=== PATIENT | female | born 1995 | race Caucasian/White ===

== ENCOUNTER 2022-05-15 09:49 | Inpatient (IN) ==
[2022-05-15] MEDS ORDERED: OXYTOCIN/RINGERS LACTATE 10 UNIT/166.6 ML BAG IVC ONE (10:12)
[2022-05-15] MEDS ORDERED: Famotidine 20 MG/2 ML VIAL IVP ONE (10:12)
[2022-05-15] MEDS ORDERED: CeFAZolin Syr 3,000MG/30 ML 3,000 MG/30 ML SYRINGE IVPB ONE (10:12)
[2022-05-15] MEDS ORDERED: Metoclopramide 10 MG/2 ML VIAL IVP ONE (10:12)
[2022-05-15] MEDS ORDERED: Ringers Solution, Lactated 1,000 ML IVC SCH (10:15)
[2022-05-15] MEDS ORDERED: Oxytocin 30 UNIT/503 ML BAG IVC SCH ×2 (10:15→12:45)
[2022-05-15] MEDS ORDERED: Lidocaine -MPF 1% 5 ML AMPUL ONE (11:10)
[2022-05-15] MEDS ORDERED: *HR* Phenylephrine 10 MG/ML VIAL ONE (12:01)
[2022-05-15] MEDS ORDERED: Ropivacaine/PF 0.2% 20 ML VIAL ONE (12:01)
[2022-05-15] MEDS ORDERED: Ropivacaine/PF 0.5% 30 ML VIAL ONE (12:01)
[2022-05-15] MEDS ORDERED: Ondansetron 4 MG/2 ML VIAL ONE (12:01)
[2022-05-15] MEDS ORDERED: EPHEDrine sulfate 50 MG/10 ML VIAL IVP PRN (12:10)
[2022-05-15] MEDS ORDERED: Epidural Premix (fent/bupiv) 110 ML EP SCH (12:15)
[2022-05-15] MEDS ORDERED: Metoclopramide 10 MG/2 ML VIAL IVP PRN (12:32)
[2022-05-15] MEDS ORDERED: Ondansetron 4 MG/2 ML VIAL IVP PRN (12:32)
[2022-05-15] MEDS ORDERED: Naloxone 0.4 MG/ML INJ IVP PRN (12:32)
[2022-05-15] MEDS ORDERED: Famotidine 20 MG/2 ML VIAL IVP PRN (12:32)
[2022-05-15 12:37] LABS: Basophils % 0.3 %; Eosinophils % 0.3 %; Hematocrit 32.9 % (35.3-44.9); Hemoglobin 10.5 g/dL (11.5-15.4); Immature Granulocytes % 0.3 % (0-4); Lymphocytes # 1.7 K/mcL (0.6-4.6); Lymphocytes % 17.3 %; Mean Corpuscular HGB Conc 31.9 g/dL (31.6-35.5); Mean Corpuscular Hemoglobin 24.5 pg (28.0-33.3); Mean Corpuscular Volume 76.9 fL (83.0-100.0); Monocytes # 0.8 K/mcL (0.0-1.3); Monocytes % 8.3 %; Neutrophils # 7.1 K/mcL (1.6-8.9); Platelet Count 254 K/mcL (140-400); Red Blood Count 4.28 M/mcL (3.82-4.97); Red Cell Distribution Width 15.2 % (11.5-14.5); Segmented Neutrophils % 73.5 %; White Blood Count 9.6 K/mcL (4.3-11.1)
[2022-05-15 12:44] LABS: Amphetamine Screen,Urine Negative ng/mL (Cutoff=1000); Barbiturate Screen,Urine Negative ng/mL (Cutoff=200); Benzodiazepines Screen,Urine Negative ng/mL (Cutoff=200); Cannabinoid Screen,Urine Negative ng/mL (Cutoff = 50); Cocaine Screen,Urine Negative ng/mL (Cutoff= 300); Opiate Screen,Urine Negative ng/mL (Cutoff=300); Phencyclidine Screen,Urine Negative ng/mL (Cutoff=25)
[2022-05-15] MEDS: Ringers Solution, Lactated 1,000 ML IVC ONE (12:54)
[2022-05-15] MEDS ORDERED: Penicillin G Potassium 5,000,000 UNIT in 0.9 % Sodium Chloride Mini Bag 100 ML IVPB ONE (13:04)
[2022-05-15] MEDS: Penicillin G Potassium 2,500,000 UNIT/105 ML MLS IVPB SCH (17:37)
[2022-05-15] MEDS ORDERED: *HR* Nalbuphine 10 MG/ML AMPUL IV PRN (18:27)
[2022-05-16] MEDS: Penicillin G Potassium 2,500,000 UNIT/105 ML MLS IVPB SCH (00:29)
[2022-05-16] MEDS: Ringers Solution, Lactated 1,000 ML IVC ONE (00:31)
[2022-05-16] MEDS ORDERED: Oxytocin 30 UNIT/503 ML BAG IVC SCH (09:08)
[2022-05-16] MEDS ORDERED: Benzocaine/Menthol 56 GM AEROSOL SPRAY TP PRN (09:08)
[2022-05-16] MEDS ORDERED: Ondansetron ODT 4 MG TAB.RAPDIS SL PRN (09:08)
[2022-05-16] MEDS ORDERED: Lanolin 7 G OINT...G. TP PRN (09:08)
[2022-05-16] MEDS ORDERED: Measles/Mumps/Rubella Vacc 0.5 ML VIAL SQ PRN (09:08)
[2022-05-16] MEDS ORDERED: Rho Immune Globulin 1,500 UNIT SYRINGE IM PRN (09:08)
[2022-05-16] MEDS: Ibuprofen 600 MG TABLET PO SCH ×2 (09:57→16:37)
[2022-05-16] MEDS: Acetaminophen 325 MG TABLET PO SCH ×3 (10:44→21:21)
[2022-05-16] MEDS: Prenatal Vit/FA 1 EACH TABLET PO SCH (10:44)
[2022-05-17] MEDS: Ibuprofen 600 MG TABLET PO SCH ×2 (00:19→06:20)
[2022-05-17 06:05] LABS: Basophils % 0.3 %; Eosinophils # 0.1 K/mcL (0.0-0.6); Eosinophils % 0.9 %; Hematocrit 31.4 % (35.3-44.9); Immature Granulocytes % 0.3 % (0-4); Lymphocytes # 1.8 K/mcL (0.6-4.6); Lymphocytes % 20.7 %; Mean Corpuscular HGB Conc 31.8 g/dL (31.6-35.5); Mean Corpuscular Hemoglobin 24.3 pg (28.0-33.3); Mean Corpuscular Volume 76.2 fL (83.0-100.0); Mean Platelet Volume 9.5 fL (9.4-12.4); Monocytes # 0.8 K/mcL (0.0-1.3); Monocytes % 9.7 %; Neutrophils # 5.9 K/mcL (1.6-8.9); Platelet Count 230 K/mcL (140-400); Red Blood Count 4.12 M/mcL (3.82-4.97); Red Cell Distribution Width 15.4 % (11.5-14.5); Segmented Neutrophils % 68.1 %; White Blood Count 8.6 K/mcL (4.3-11.1)
[2022-05-17] MEDS: Acetaminophen 325 MG TABLET PO SCH ×2 (07:37→08:07)
[2022-05-17 07:54] VITALS: BP 98/60; PULSE 90; TEMP 98.2; O2SAT 99
[2022-05-17] MEDS: Prenatal Vit/FA 1 EACH TABLET PO SCH (08:07)
== END 2022-05-17 16:00 | disposition home or self-care (01) | DRG 807 ==
LOC: 1NENULAB 09:49 → 1NENUOBS 05-16 10:31
PROVIDERS: ADMIT Obstetrics & Gynecology; ATTEND Obstetrics & Gynecology